=== PATIENT | male | born 1985 | race Caucasian/White ===

== ENCOUNTER 2016-12-18 21:04 | Emergency (ER) | payer OTHER ==
[~2016-12-18] VITALS: Ht 167.6 cm; Wt 72.7 kg
--- NOTE | 2016-12-18 22:40 | REPUSA ---
Clinical history: Pain. Findings: Real-time ultrasound imaging of the testicles and scrotum was performed. The right testicle measures 5.8 x 2.4 x 3.6 cm. The left testicle measures 5.3 x 2.6 x 3.1 cm. The testicles demonstra te normal echo texture and echogenicity. There is a simple cyst in the left epididymis measuring up t o 2 mm. Normal color Doppler flow and arterial waveforms are seen wwithin the left testicle. There is diffuse increased vascularity of the right testicle of the right epididymis. No fluid collections are seen. Impression: Right-sided orchitis/epididymitis.
[2016-12-19] MEDS ORDERED: LEVA1TAB2 PO (00:05)
[2016-12-19 00:09] VITALS: BP 132/72
[2016-12-19] MEDS ORDERED: cefTRIAXone SOD 250 MG VIAL (J0696) IM ONE (00:15)
[2016-12-19] MEDS ORDERED: LevoFLOXacin 500 MG TABLET PO ONE (00:15)
== END 2016-12-19 00:16 | disposition home or self-care (01) ==
LOC: M ED 21:04
DX: N45.3 Epididymo-orchitis (principal)
CPT/HCPCS: 76870; 81001; 87086; 87491; 87591; 93976; 96372; 99282; J0696

== ENCOUNTER → 2020-04-01 | Outpatient (REF) | payer OTHER ==
[~2020-04-01] MED LIST: LEVA1TAB2 PO
== END ==
LOC: M SMT 12:59
PROVIDERS: ATTEND Urology
DX: Z30.2 Encounter for sterilization (principal)

== ENCOUNTER 2020-09-05 13:16 | Day surgery (SDC) | payer OTHER ==
[~2020-09-05] VITALS: Ht 167.6 cm; Wt 81.6 kg
[~2020-09-05 13:16] MED LIST changes: +MAXA10TA14 PO; +NS 1,000 ML IV ONE; +PROZ20CA11 PO
[2020-09-05] MEDS ORDERED: propofoL 200 MG/20 ML VIAL As Ordered ONE (13:51)
[2020-09-05] MEDS ORDERED: LIDOCAINE 2% 100MG/5ML SDV (FOR ANES.) As Ordered ONE (13:51)
[2020-09-05] MEDS ORDERED: fentaNYL 100 MCG/2 ML INJECTION (J3010) As Ordered ONE (14:38)
--- NOTE | 2020-09-05 14:51 | ROOR ---
Patient Name: Jose Tan Procedure Date: 09/05/2020 2:32 PM Date of : 1985 Age: 34 Room: [facility] Gender: Male Note Status: Finalized Procedure: Upper Endoscopy + Biopsies Indications: Heartburn, Exclusion of Malik's esophagus Providers: Roberto Lugo MD Referring MD: MILLIE PINTO MD Requesting Provider: Medicines: Monitored Anesthesia Care Complications: No immediate complications. Procedure: Pre-Anesthesia Assessment: - The heart rate, respiratory rate, oxygen saturations, blood pressure, adequacy of pulmonary ventilation, and response to care were monitored throughout the procedure. The Endoscope was introduced through the mouth, and advanced to the second part of duodenum. The upper GI endoscopy was accomplished without difficulty. The patient tolerated the procedure well. Findings: The Z-line was variable and was found 40 cm from the incisors. Multiple biopsies were obtained with cold forceps for evaluation to rule out Malik's Esophagus randomly at the gastroesophageal junction. A medium-sized hiatal hernia was present. No other significant abnormalities were identified in a careful examination of the stomach. Biopsies were taken with a cold forceps in the gastric antrum for Helicobacter pylori testing. The exam of the duodenum was otherwise normal. Impression: - Z-line variable, 40 cm from the incisors. - Medium-sized hiatal hernia. - Multiple biopsies were obtained at the gastroesophageal junction. - Biopsies were taken with a cold forceps for Helicobacter pylori testing. - The examination was otherwise normal. Recommendation: - Patient has a contact number available for emergencies. The signs and symptoms of potential delayed complications were discussed with the patient. Return to normal activities tomorrow. Written discharge instructions were provided to the patient. - Discharge patient to home. - Follow an antireflux regimen. - Continue present medications. - Await pathology results. - Telephone GI clinic for pathology results in 1 week. - Return to referring physician. - The findings and recommendations were discussed with the patient's family. Procedure Code(s): --- Professional --- 34145, Esophagogastroduodenoscopy, flexible, transoral; with biopsy, single or multiple Diagnosis Code(s): --- Professional --- K22.8, Other specified diseases of esophagus K44.9, Diaphragmatic hernia without obstruction or gangrene R12, Heartburn CPT copyright 2019 [employer]. All rights reserved. The codes documented in this report are preliminary and upon weaver needle loom review may be revised to meet current compliance requirements. Roberto Lugo MD Roberto Lugo MD 09/05/2020 2:51:02 PM Electronically signed by Roberto Lugo MD Number of Addenda: 0 Note Initiated On: 09/05/2020 2:32 PM Estimated Blood Loss: Estimated blood loss: none.
[2020-09-05 15:00] VITALS: BP 135/74
== END 2020-09-05 15:41 | disposition home or self-care (01) ==
LOC: M OPP 13:16
PROVIDERS: ATTEND Internal Medicine Gastroenterology
DX: K22.8 Other specified diseases of esophagus (principal); K44.9 Diaphragmatic hernia without obstruction or gangrene; R10.11 Right upper quadrant pain
CPT/HCPCS: 43239; 88305; J3010